=== PATIENT | male | born 1960 | race African-American/Black ===

== ENCOUNTER 2019-03-16 22:23 | Emergency (ER) | payer OTHER ==
[~2019-03-16] VITALS: Ht 175.3 cm; Wt 93.0 kg
[2019-03-16 22:27] VITALS: BP_SYST 140
--- NOTE | 2019-03-16 22:32 | NUR ---
Placed in room 6 . Placed on salon professional, blood pressure machine and pulse oximeter. To gown for exam. Side rails up.
--- NOTE | 2019-03-16 22:33 | NUR ---
Pt brought in by self, ambulatory, complaining of non-radiating substernal chest pain that started around 5pm today. Pt described it as sharp pain to substernal region. Pt states pain increased after dinner, 6:30pm. Pt states pain increases when ambulating. Pt denies N/V. No diaphoresis. EKG done in triage room and was given to Dr. Glass to interpret. Pt is AAO x 4. at bedside. No other injuries/complaints per patient or noted.
--- NOTE | 2019-03-16 22:35 | NUR ---
ER Dr. Glass at bedside examining patient.
--- NOTE | 2019-03-16 22:40 | NUR ---
Aspirin was given. pt tolerated well.
--- NOTE | 2019-03-16 22:44 | NUR ---
Dr. Glass verbally ordered EKG. EKG completed, per Dr. Glass "too much artifact, repeat."
--- NOTE | 2019-03-16 22:45 | NUR ---
Dr. Glass verbally ordered another EKG. EKG completed.
--- NOTE | 2019-03-16 22:48 | NUR ---
Nitrogylcerin 0.4mg sublingual given. pt reports chest pain at 9/10.
[2019-03-16] MEDS ORDERED: ASPIRIN 81 MG TAB.CHEW ONE (22:51)
--- NOTE | 2019-03-16 22:53 | NUR ---
Second Nitrogylcerin 0.4mg sublingual given. pt reports chest pain at 8/10.
--- NOTE | 2019-03-16 22:54 | NUR ---
Dr. Glass verbally ordered EKG. EKG completed.
[2019-03-16 22:59] LABS: BASOPHILS # (AUTO) 0.2 K/uL (0.0-0.2); BASOPHILS % (AUTO) 2.5 % (0.0-2.0); EOSINOPHILS # (AUTO) 0.1 K/uL (0.0-0.4); HEMATOCRIT 46.4 % (36-54); HEMOGLOBIN 15.4 g/dL (14.0-18.0); LYMPHOCYTES # (AUTO) 1.7 K/uL (1.0-5.5); LYMPHOCYTES % (AUTO) 23.8 % (20.5-51.5); MEAN CORPUSCULAR HEMOGLOBIN 30 pg (27-31); MEAN CORPUSCULAR HGB CONC 33 % (32-36); MEAN CORPUSCULAR VOLUME 91 fL (79.0-98.0); MONOCYTES # (AUTO) 0.5 K/uL (0.0-1.0); MONOCYTES % (AUTO) 7.8 % (1.7-9.3); NEUTROPHILS # (AUTO) 4.5 K/uL (1.8-7.7); NEUTROPHILS % (AUTO) 63.9 % (40.0-70.0); PLATELET COUNT (AUTO) 205 K/uL (130-430); RED BLOOD CELL COUNT(AUTO) 5.07 MIL/uL (4.2-6.2); RED CELL DISTRIBUTION WIDTH 14.7 % (9.0-15.0)
[2019-03-16] MEDS ORDERED: NITROGLYCERIN 0.4 MG TAB.SUBL SL ONE ×2 (22:59→23:00)
--- NOTE | 2019-03-16 22:59 | NUR ---
Note kai in EDM - 03/16/19 at 2313 by [email or web address] Nitroglycerin 0.4mg sublingual given to patient. pt reports chest pain is 06/12.
--- NOTE | 2019-03-16 22:59 | NUR ---
Nitrogylcerin 0.4mg sublingual given. pt reports chest pain at 7/10.
[2019-03-16] MEDS ORDERED: fentaNYL CITRATE/PF 100 MCG/2 ML AMP IVP ONE (23:00)
[2019-03-16] MEDS ORDERED: NITROGLYCERIN 250 ML IV ONE (23:00)
[2019-03-16] MEDS ORDERED: ASPIRIN 81 MG TAB.CHEW PO ONE ×2 (23:00→23:45)
--- NOTE | 2019-03-16 23:05 | NUR ---
Dr. Glass verbally ordered EKG. EKG completed.
[2019-03-16] MEDS ORDERED: HEPARIN SODIUM,PORCINE 5000 UNITS/ML VIAL IVP ONE (23:15)
[2019-03-16 23:28] VITALS: BP_SYST 134
--- NOTE | 2019-03-16 23:28 | NUR ---
Patient to be transferred to [facility]. Is being transferred due to higher level of care. Receiving facility has accepting physician and available space. ER physician has signed transfer form. Patient or responsible libertarian has agreed to transfer and signed form. Patient belongings inventoried and will be sent with patient. Copy of nursing notes, lab reports, EKG, Physicians Orders and X-rays to be sent with patient. Report called to K[facility]LOE at receiving facility. Receiving physician is DR. Chatman. [facility] has been called for transfer.
[2019-03-16 23:35] LABS: INR 0.9 (0.80-1.20); PROTHROMBIN TIME 9.6 SECS (9.5-12.5)
[2019-03-16 23:42] LABS: CALCIUM 9.4 mg/dL (8.4-11.0); CREATININE 1.02 mg/dL (0.55-1.30); POTASSIUM 3.9 mmol/L (3.5-5.1)
[2019-03-16 23:48] LABS: ALBUMIN 3.7 g/dL (3.4-4.8); TOTAL BILIRUBIN 0.3 mg/dL (0.0-1.0)
== END 2019-03-16 23:28 | disposition short-term general hospital (02) ==
LOC: SED 22:23
DX: I21.4 Non-ST elevation (NSTEMI) myocardial infarction (principal)
CPT/HCPCS: 36415; 71045; 80053; 83690; 84484; 85025; 85379; 85610; 85730; 93005; 96374; 99291; J1644; J3010; J3490